=== PATIENT | male | born 1955 | race Caucasian/White ===

== ENCOUNTER → 2025-05-28 09:46 | Outpatient (CLI) | payer OTHER, SELFPAY | LOC: RESP 09:49 | PROVIDERS: Referring Provider Chiropractor; Visit Provider Chiropractor | DX: J44.9 Chronic obstructive pulmonary disease, unspecified (principal); R05.9 Cough, unspecified; R94.2 Abnormal results of pulmonary function studies | CPT/HCPCS: 94060 ==